=== PATIENT | female | born 1975 | race Two or more races ===

== ENCOUNTER 2022-07-29 13:49 | Emergency (ER) | payer OTHER, SELFPAY ==
--- NOTE | ~2022-07-29 | CT_ITS ---
EXAMINATION: CT brain wo con DATE: 07/29/2022 14:44 INDICATION: weakness of L arm? YOUNG . TECHNIQUE: Computed tomography (CT) of the head was performed without intravenous contrast. The mA wa s adjusted according to patient size. Iterative reconstruction technique was employed. The dose-lengt h product was 529.67 mGy-cm. COMPARISON: None FINDINGS: No acute intracranial hemorrhage or extra-axial fluid collection. No hydrocephalus, mass, or herniation. No acute ischemic infarct. Unremarkable dural venous sinus attenuation. No acute osseous abnormality. The aerated spaces are clear. IMPRESSION: No acute intracranial process. Reviewed, dictated and finalized at location K.
--- NOTE | ~2022-07-29 | CT_ITS ---
EXAMINATION: CT abdomen pelvis w con DATE: 07/29/2022 15:42 INDICATION: L flank/LLQ pain, nausea, diarrhea TECHNIQUE: Computed tomography (CT) of the abdomen and pelvis was performed with 100 mL Omnipaque-350 intravenous contrast. Automated exposure control and iterative reconstruction technique were employe d. The dose-length product was 763.27 mGy-cm. COMPARISON: None. FINDINGS: Lower thorax: Unremarkable Liver: Normal. Biliary/Gallbladder: Gallbladder is normal. No bile duct dilation. Pancreas: No mass or duct dilation. Spleen: Normal. Adrenals:No mass. Kidneys: No mass, stone, or hydronephrosis. GI tract: Mild distal esophageal and gastric wall edema. No small or large bowel dilation. Normal jen endix. Mesentery/Peritoneum: No ascites, mass, or free air. Retroperitoneum: No mass. Pelvis: Pelvic organs are within normal limits. Soft Tissues: Soft tissues and body wall unremarkable. Bones: No acute osseous finding. IMPRESSION: Mild esophagitis/gastritis. Otherwise no acute abdominopelvic process detected. Reviewed, dictated and finalized at location K.
[2022-07-29 13:53] VITALS: BP 149/90; PULSE 72; RESP 15; TEMP 36.3; O2SAT 100
--- NOTE | 2022-07-29 14:01 | ED.GENADULT ---
HPI - General Adult General Chief complaint: Unspecified Stated complaint: left arm numbness, nausea, weakness Time Seen by Provider: 07/29/22 14:01 Source: patient Mode of arrival: ambulatory Limitations: no limitations History of Present Illness HPI narrative: Patient is a 46 y/o female who presents to the ED with multiple complaints. Patient reports she has not felt well for the past 2 days. She complains of sore throat, congestion, runny nose, headache, left flank pain, diffuse abdominal pain, diarrhea, left elbow pain, tingling of left arm from left elbow down to fingers, generalized weakness, fatigue. Denies any fever, significant cough, vomiting, chest pain, shortness of breath. Denies recent sick contacts. Has been taking Ibuprofen and TUMs at home. Patient is vaccinated for COVID. Related Data Allergies Allergy/AdvReac Type Severity Reaction Status Date / Time No Known Allergies Allergy Verified 07/29/22 14:29 Review of Systems Review of Systems: CONSTITUTIONAL: Reports fatigue. Denies fever. ENT: Reports rhinorrhea, congestion, sore throat. CARDIOVASCULAR: Denies chest pain. RESPIRATORY: Denies cough or dyspnea. GASTROINTESTINAL: Reports abdominal pain, nausea, diarrhea. Denies vomiting. GENITOURINARY: Denies dysuria or hematuria. MUSCULOSKELETAL: Reports L elbow pain, L flank pain. NEUROLOGIC: Reports headache, tingling to LUE from L elbow down, generalized weakness. Denies numbness. All systems reviewed & are unremarkable except as noted in HPI and below PMFSH Past Medical History Medical History (Updated 07/29/22 @ 18:20 by Munira Esquivel PA-C) Anxiety Surgical History Surgical History (Updated 07/29/22 @ 14:53 by Munira Esquivel PA-C) History of hysterectomy Social History Social History (Updated 07/29/22 @ 14:53 by Munira Esquivel PA-C) Smoking status: Never smoker Exam Narrative: GENERAL: Well appearing, obese, non-toxic, in no acute distress. HEAD: Normocephalic, atraumatic. EYES: PERRL/EOMI, conjunctivae clear bilaterally. No nystagmus. THROAT: Pharynx clear, no exudate. No significant erythema. MMs moist. NECK: Supple. No adenopathy, no masses. RESPIRATORY: Airway patent, respirations nonlabored. Clear to auscultation bilaterally, no rales, rhonchi, wheezing. CARDIOVASCULAR: Regular rate and rhythm without murmurs, rubs, or gallops. Peripheral pulses 2+ and equal bilaterally. ABDOMINAL: Soft, mild tenderness in L sided ABD, worst in LLQ, nondistended, no hepatosplenomegaly. Normoactive BS. No CVA tenderness to percussion. MUSCULOSKELETAL: Moves all extremities. Strength/ROM intact without gross deformities. No midline spinal tenderness. No significant reproducible tenderness to palpation in left lower back. Mild tenderness over region of ulnar tunnel to medial L elbow, but unable to reproduce tingling/numbness sensation. Negative Tinels, phalens, carpal compression testing. SKIN: Warm, dry, normal color. No rashes. NEURO: A&O X3. Speech clear. Follows commands. CN II-XII intact. Sensation intact, no change in sharp sensation of LUE/L hand compared to right. Steady gait. No ataxic movements. Strength 5/5 in upper and lower extremities bilaterally, but minimal unequal spa manager/esthetician strength with mild weakness in L wrist/hand with making fist. [id number] and [id number] testing intact bilaterally. No pronator drift. PSYCHIATRIC: Anxious. Normal interaction. Course Consultations Consultation #1: Discussed case with Dr. Mratinez, Neurology, discussed that patient's symptoms/isolated hand weakness is unlikely to be stroke. No further recommendations at this time. Date: 07/29/22 Vital Signs Vital signs: Vital Signs Temperature 97.4 F L 07/29/22 13:53 Pulse Rate 72 07/29/22 13:53 Respiratory Rate 15 07/29/22 13:53 Blood Pressure 149/90 H 07/29/22 13:53 Pulse Oximetry 100 07/29/22 13:53 Oxygen Delivery Room Air 07/29/22 13:53 Temperature 97.4 F L 07/29/22 13:53
--- NOTE | 2022-07-29 14:11 | ECG_ITS ---
Measurements Intervals [place] Rate: 56 P: 20 TN: 158 QRS: 88 QRSD: 82 T: 23 QT: 397 QTc: 385 Interpretive Statements SINUS BRADYCARDIA BASELINE ARTIFACT- I, II, AVR BORDERLINE ECG Electronically Signed On 07-29-2022 18:44:24 CDT by Sekou Ortiz D.O.
[2022-07-29 14:25] LABS: Basophils Absolute Auto 0.1 K/mm3 (0.0-0.1); Basophils Percent Auto 0.6 % (0.2-1.2); Hematocrit 39.1 % (37.0-47.0); Hemoglobin 12.8 g/dL (12.0-15.0); Immature Granulocyte Absolute 0.09 K/mm3 (0.00-0.031); Immature Granulocyte Percent A 1.1 % (0-0.5); Lymphocytes Absolute Auto 2.71 K/mm3 (0.9-3.2); Lymphocytes Percent Auto 34.2 % (18.3-44.2); Mean Corpuscular HGB Conc 32.7 g/dl (32-36); Mean Corpuscular Hemoglobin 29.8 pg (26-34); Mean Corpuscular Volume 91.1 fl (80-100); Mean Platelet Volume 9.3 fl (7.4-10.4); Monocytes Absolute Auto 0.6 K/mm3 (0.1-0.6); Monocytes Percent Auto 7.3 % (2.6-8.5); Neutrophils Absolute Auto 4.5 K/mm3 (1.3-6.7); Neutrophils Percent Auto 56.8 % (45.5-73.1); Platelet Count Result 291 k/mm3 (150-375); Red Blood Count 4.29 M/mm3 (4.2-5.4); Red Cell Distribution Width 13.2 % (11.5-14.5); White Blood Count 7.9 K/mm3 (4.5-10.0)
[2022-07-29] MEDS: SODIUM CHLORIDE 0.9% IV 1,000 ML 999 ML IV CONT (14:28)
[2022-07-29 14:37] LABS: Alanine Aminotransferase 22 U/L (6-35); Albumin Level 3.9 g/dL (3.5-5.1); Alkaline Phosphatase 76 U/L (38-126); Anion Gap 8 mmol/L (8-16); Appearance Urine Clear (Clear); Aspartate Amino Transferase 26 U/L (14-36); Bilirubin Urine Negative (Negative); Bilirubin,Total 0.2 mg/dL (0.2-1.3); Blood Urea Nitrogen 14 mg/dL (7-17); Blood Urine Negative (Negative); Calcium 8.7 mg/dL (8.4-10.2); Carbon Dioxide 21 mmol/L (22-30); Chloride 106 mmol/L (98-107); Color Urine Yellow (Yellow); Estimated CRCL calculation 93 ml/min; Estimated Glomerular Filt Rate > 60; Glucose 95 mg/dL (65-110); Glucose Urine UA Negative (Negative); Ketones Urine Trace mg/dL (Negative); Leukocyte Esterase Ur Negative LEU/UL (Negative); Nitrate Urine Negative (Negative); Potassium 3.8 mmol/L (3.4-5.0); Protein Urine Negative (Negative); Sodium 135 mmol/L (137-145); Specific Grav Ur 1.025 (1.001-1.035); Urobilinogen Urine 0.2 mg/dL (<2.0)
[2022-07-29 15:03] LABS: Add Urine Microscopic? YES; RBC Urine None seen /hpf (0-2); SARS-CoV-2 RNA PCR Negative
[2022-07-29 15:04] LABS: Squamous Epithelial Cell Urine Few /hpf (Few); WBC Urine None seen /hpf
[2022-07-29 15:22] VITALS: BP 138/72; PULSE 76; RESP 18; O2SAT 99
[2022-07-29 15:52] LABS: Troponin I < 0.012 ng/mL (0.000-0.034)
[2022-07-29] MEDS: KETOROLAC 30 MG/ML VIAL (*BKC) IV PUSH (18:23)
[2022-07-29] MEDS: BELLADONNA ALK/PHENOB ELIX 10 ML, MAG HYDROX/ALUMINUM HYD/SIMETH 30 ML, LIDOCAINE HCL 2... PO (18:24)
[2022-07-29 18:33] VITALS: BP 132/68; PULSE 70; RESP 18; O2SAT 99
== END 2022-07-29 18:35 | disposition home or self-care (01) ==
PROVIDERS: Physician Assistant; Emergency Provider Emergency Medicine
DX: K52.9 Noninfective gastroenteritis and colitis, unspecified (principal); M62.81 Muscle weakness (generalized); Z20.822 Contact with and (suspected) exposure to COVID-19
CPT/HCPCS: 36415; 70450; 74177; 80053; 81001; 84484; 85025; 93005; 96361; 96365; 96375; 99284; A9270; C9803; J0131; J1885; J7030; Q9967; U0003; U0005

== ENCOUNTER 2023-12-27 15:35 | Emergency (ER) | payer OTHER, SELFPAY ==
--- NOTE | ~2023-12-27 | XR_ITS ---
EXAMINATION: XR chest 1V portable DATE: 12/27/2023 16:55 INDICATION: Chest tightness TECHNIQUE: AP view of the chest was obtained. COMPARISON: None FINDINGS: The lungs are clear with no focal airspace opacities, pulmonary edema, pleural effusion or pneumothor ax. The cardiomediastinal silhouette is normal. Visualized bones and soft tissues are unremarkable. IMPRESSION: 1. No acute cardiopulmonary disease. Reviewed, dictated and finalized at location A. EMAN
[2023-12-27 15:38] VITALS: BP 132/85; PULSE 95; RESP 16; TEMP 36.6; O2SAT 100
--- NOTE | 2023-12-27 16:41 | ECG_ITS ---
Measurements Intervals [place] Rate: 77 P: 43 IA: 158 QRS: 94 QRSD: 82 T: 15 QT: 350 QTc: 398 Interpretive Statements SINUS RHYTHM LOW QRS VOLTAGE BORDERLINE RIGHT AXIS DEVIATION [QRS AXIS > 90] PATTERN CONSISTENT WITH PULMONARY DISEASE ABNORMAL ECG COMPARED TO ECG 07/29/2022 15:05:06 NO DIFFERENCE Electronically Signed On 12-28-2023 7:08:25 SALES STRATEGY MANAGER by Navid Bell M.D.
[2023-12-27 17:20] LABS: Basophils Percent Auto 0.5 % (0.2-1.2); Hematocrit 43.8 % (37.0-47.0); Hemoglobin 14.1 g/dL (12.0-15.0); Immature Granulocyte Absolute 0.05 K/mm3 (0.00-0.031); Immature Granulocyte Percent A 0.6 % (0-0.5); Lymphocytes Absolute Auto 2.08 K/mm3 (0.9-3.2); Mean Corpuscular HGB Conc 32.2 g/dl (32-36); Mean Corpuscular Hemoglobin 29.1 pg (26-34); Mean Corpuscular Volume 90.5 fl (80-100); Mean Platelet Volume 9.4 fl (7.4-10.4); Monocytes Absolute Auto 0.4 K/mm3 (0.1-0.6); Monocytes Percent Auto 5.5 % (2.6-8.5); Neutrophils Absolute Auto 5.4 K/mm3 (1.3-6.7); Neutrophils Percent Auto 67.4 % (45.5-73.1); Platelet Count Result 279 k/mm3 (150-375); Red Blood Count 4.84 M/mm3 (4.2-5.4); Red Cell Distribution Width 12.8 % (11.5-14.5)
[2023-12-27 17:35] LABS: Anion Gap 8 mmol/L (8-16); Blood Urea Nitrogen 17 mg/dL (7-17); Calcium 9.6 mg/dL (8.4-10.2); Carbon Dioxide 29 mmol/L (22-30); Chloride 102 mmol/L (98-107); Estimated CRCL calculation 83 ml/min; Estimated Glomerular Filt Rate > 60; Glucose 103 mg/dL (65-110); Potassium 3.8 mmol/L (3.4-5.0); Sodium 139 mmol/L (137-145)
--- NOTE | 2023-12-27 18:07 | ED.GENADULT ---
HPI - General Adult General Chief complaint: Unspecified Stated complaint: not feeling right Time Seen by Provider: 12/27/23 16:32 History of Present Illness HPI narrative: patient with history of anxiety and panic attacks presenting here after an episode 2 days ago where she was in her studio and then felt chest tightness, felt like she couldn't breathe, and then felt like she was disconnected from herself. she both hands felt stiff and weak and she was barely able to speak, she finally took some propanolol for for anxiety, considered coming to the hospital, but felt slightly better so stayed home. Overall still feeling slightly tired so came in to the hospital. Related Data Allergies Allergy/AdvReac Type Severity Reaction Status Date / Time oxycodone AdvReac Itching Verified 12/27/23 17:41 Review of Systems Review of Systems: All systems reviewed & are unremarkable except as noted in HPI and below PMFSH Past Medical History Medical History (Updated 12/27/23 @ 17:53 by Lizzie Ruiz MD) Anxiety Surgical History Surgical History (Updated 07/29/22 @ 14:53 by Munira Esquivel PA-C) History of hysterectomy Social History Social History (Updated 07/29/22 @ 14:53 by Munira Esquivel PA-C) Smoking status: Never smoker Exam Narrative: EXAMINATION OF ORGAN SYSTEMS/BODY AREAS: Constitutional: Vital signs per nursing GENERAL:[No acute distress, non-toxic appearing.] HEAD: Normal with no signs of head trauma. EYES: EOMI, conjunctiva normal ENT: Hearing grossly intact LUNGS: Nonlabored breathing. HEART: [Regular rate and rhythm] ABD: [Soft], [nontender to palpation] EXT: Normal range of motion SKIN: [No rashes or lesions.] NEURO: [Alert and oriented x 3. No gross focal sensory or strength deficits.] PSYCH: Normal affect Course Vital Signs Vital signs: Vital Signs Temperature 98 F 12/27/23 15:38 Pulse Rate 95 12/27/23 15:38 Respiratory Rate 16 12/27/23 15:38 Blood Pressure 132/85 12/27/23 15:38 Pulse Oximetry 100 12/27/23 15:38 Oxygen Delivery Room Air 12/27/23 15:38 Temperature 98 F 12/27/23 15:38 Pulse Rate 95 12/27/23 15:38 Respiratory Rate 16 12/27/23 15:38 Blood Pressure 132/85 12/27/23 15:38 Pulse Oximetry 100 12/27/23 15:38 Oxygen Delivery Room Air 12/27/23 15:38 Medical Decision Making MDM Narrative Medical decision making narrative: Patient with history of anxiety/panic attacks presenting here with an episode that sounds to me consistent with panic attacks that has since resolved. On exam patient is well-appearing in no distress, with normal vital signs. I will obtain EKG and chest xray to rule out arrhythmia/ischemia, pneumothorax, or other cause of chest discomfort/shortness of breath. I will also obtain basic labs to an ensure no anemia. She is PERC neg. Chest x-ray on my independent interpretation does not show any acute abnormality, no pneumothorax or consolidation. EKG - 12-Lead: Interpreted by me. [Sinus rhythm]. Rate [77]. [Normal] axis. IA-interval [normal]. QRS duration [normal]. QTc [normal]. [No ST segment elevation or depression]. [T-wave normal]. Impression: No EKG evidence of acute ischemia or dysrhythmia. On reevaluation patient is not feeling worse she is resting comfortably, normal vitals; she does have migraines and would like some medicine for that right now so I will give toradol. I do feel patient is stable for discharge home at this time with followup to their doctor, and return here if symptoms return or worsen. Agreeable to outpatient management. Vital Signs Vital Signs: Vital Signs Temperature 98 F 12/27/23 15:38 Pulse Rate 95 12/27/23 15:38 Respiratory Rate 16 12/27/23 15:38 Blood Pressure 132/85 12/27/23 15:38 Pulse Oximetry 100 12/27/23 15:38 Oxygen Delivery Room Air 12/27/23 15:38 Temperature 98 F 12/27/23 15:38 Pulse Rate 95 12/27/23 15:38 Respirato
[2023-12-27 18:13] VITALS: BP 134/86; PULSE 78; RESP 16; O2SAT 98
[2023-12-27] MEDS: KETOROLAC 30 MG/ML VIAL (*BKC) IM (18:13)
== END 2023-12-27 18:14 | disposition home or self-care (01) ==
PROVIDERS: Emergency Provider Emergency Medicine; PCP Family Medicine
DX: F41.9 Anxiety disorder, unspecified (principal); R53.83 Other fatigue; R07.89 Other chest pain; Z90.710 Acquired absence of both cervix and uterus; R94.31 Abnormal electrocardiogram [ECG] [EKG]
CPT/HCPCS: 36415; 71045; 80048; 85025; 93005; 96372; 99283; J1885

== ENCOUNTER 2023-12-29 16:09 | Emergency (ER) | payer OTHER, SELFPAY ==
--- NOTE | 2023-12-29 16:19 | ED.GENADULT ---
HPI - General Adult General Chief complaint: Headache Stated complaint: Headache Time Seen by Provider: 12/29/23 16:20 Source: patient Mode of arrival: ambulatory Limitations: no limitations History of Present Illness HPI narrative: 28-year-old female patient presents to the [facility] with complaints of migraine. Patient states she was seen in the ER about 2 days ago for an anxiety attack. Patient states that she had developed a migraine after her anxiety attack and was given Toradol in the ER. Patient states she has been taking her propanolol for her migraines and anxiety as well as been taking ibuprofen for the headaches but states they have not been resolving. Patient describes symptoms as sensitivity to light, headache to the left side of the face, rates headache pain 8/10 with nausea. Denies vomiting or diarrhea. Denies any fevers, body aches or chills. Denies numbness or tingling no one-sided body of the other. The patient states she has never been diagnosed or treated for hypertension. Related Data Home Medications Medication Instructions Recorded Confirmed albuterol sulfate 90 mcg/actuation 2 puff inhalation DIRECTED 12/29/23 12/29/23 aerosol inhaler alprazolam 2 mg tablet 2 mg PO DIRECTED 12/29/23 12/29/23 mometasone 50 mcg/actuation nasal 1 spray intranasal DIRECTED 12/29/23 12/29/23 spray propranolol 20 mg tablet 20 mg PO DIRECTED 12/29/23 12/29/23 Allergies Allergy/AdvReac Type Severity Reaction Status Date / Time oxycodone AdvReac Itching Verified 12/29/23 16:13 Review of Systems Review of Systems: CONSTITUTIONAL: Denies fever, chills, or sweats. EYES: Denies visual changes, redness, or discharge. ENT: Denies rhinorrhea, congestion, sore throat, or otalgia. CARDIOVASCULAR: Denies chest pain, palpitations, or edema. RESPIRATORY: Denies cough or dyspnea. GASTROINTESTINAL: Denies abdominal pain, nausea, vomiting, or diarrhea. GENITOURINARY: Denies dysuria or hematuria. SKIN: Denies rash or itching. MUSCULOSKELETAL: Denies back pain, joint pain, or myalgia. NEUROLOGIC: positive headache,denies numbness, or weakness. PSYCHIATRIC: Denies anxiety or depression. [facility] Past Medical History Medical History (Updated 02/03/24 @ 16:59 by MENA Olson) Anxiety Migraine Surgical History Surgical History History of hysterectomy Social History Social History Smoking status: Never smoker Comments At the time of my signature I agree with nursing past medical history, surgical, social, and family history. There is no relevant family history pertinent to the presenting complaint. Exam Narrative: GENERAL: Well-appearing, well-nourished, and in no acute distress. HEAD: Normocephalic, atraumatic. EYES: PERRLA and EOMI. ENT: Nares clear, no rhinorrhea or epistaxis. Mucous membranes moist. NECK: Supple. No lymphadenopathy CHEST: Clear to auscultation. No respiratory distress. HEART: Regular rate and rhythm. No murmur heard. Normal peripheral pulses. ABDOMEN: Soft, nontender, nondistended, normal active bowel sounds. EXTREMITIES: Normal range of motion. No edema. SKIN: Warm, dry, no rash. NEURO: Alert and oriented x4, GCS 15. Cranial nerves II through XII grossly intact. No focal neurological deficits. Normal muscle strength and tone. Normal deep tendon reflexes. Negative Babinski, normal finger to nose coordination he had normal heel to tinoco glide. Speech is clear. Normal gait. Negative Romberg and no pronator drift Course Course Level of Care: Express Care Visit Vital Signs Vital signs: Vital Signs Temperature 36.6 C 12/29/23 16:25 Pulse Rate 71 12/29/23 16:25 Respiratory Rate 16 12/29/23 16:25 Blood Pressure 155/105 H 12/29/23 16:25 Pulse Oximetry 100 12/29/23 16:25 Oxygen Delivery Room Air 12/29/23 16:25 Temperature 36.6 C 0
[2023-12-29 16:25] VITALS: BP 155/105; PULSE 71; RESP 16; TEMP 36.6; O2SAT 100
--- NOTE | 2023-12-29 16:43 | ECG_ITS ---
Measurements Intervals [place] Rate: 65 P: 38 RI: 161 QRS: 90 QRSD: 82 T: 30 QT: 387 QTc: 404 Interpretive Statements SINUS RHYTHM COMPARED TO ECG 12/27/2023 17:36:20 NO SIGNIFICANT CHANGES Electronically Signed On 12-30-2023 11:34:22 NITROGLYCERIN SEPARATOR OPERATOR by Sunny Barnes M.D.
== END 2023-12-29 17:00 | disposition home or self-care (01) ==
PROVIDERS: Emergency Provider Nurse Practitioner Family; PCP Family Medicine
DX: G43.809 Other migraine, not intractable, without status migrainosus (principal); I10 Essential (primary) hypertension; F41.9 Anxiety disorder, unspecified
CPT/HCPCS: 93005; 99213; G0463

== ENCOUNTER 2023-12-30 13:05 | Emergency (ER) | payer OTHER, SELFPAY ==
--- NOTE | ~2023-12-30 | CT_ITS ---
EXAMINATION: CT brain wo con DATE: 12/30/2023 16:26 INDICATION: migraine YOUNG . TECHNIQUE: Computed tomography (CT) of the head was performed without intravenous contrast. The mA wa s adjusted according to patient size. Iterative reconstruction technique was employed. The dose-lengt h product was 529.67 mGy-cm. COMPARISON: None. FINDINGS: No acute intracranial hemorrhage or extra-axial fluid collection. No hydrocephalus, mass, or herniation. No acute ischemic infarct. Unremarkable dural venous sinus attenuation. No acute osseous abnormality. The aerated spaces are clear. IMPRESSION: No acute intracranial process. Reviewed, dictated and finalized at location K. GER HELPDESK
[2023-12-30 13:19] VITALS: BP 145/100; PULSE 100; RESP 20; TEMP 36.4; O2SAT 99
--- NOTE | 2023-12-30 13:33 | ED.HA ---
HPI - Headache General Chief Complaint: Headache Stated Complaint: headache Time Seen by Provider: 12/30/23 13:33 Source: patient Mode of arrival: ambulatory Limitations: no limitations History of Present Illness HPI Narrative: Trang is a 48-year-old female patient presenting to the ER today with complaints of headache and high blood pressure that has been ongoing since Sunday. She reports she was seen in the ER for a panic attack on Sunday and had slight headache at that time. Was given Toradol for pain and that helped alleviate the headache somewhat but did not fully take the headache away. States she does have a history of migraine headaches in the past. Was told to take Excedrin migraine, Benadryl, and and her Xanax. She is reporting associated photosensitivity and nausea. Denies any vomiting. Rates her pain currently an 8/10 and is throbbing on the left side of her head Related Data Home Medications Medication Instructions Recorded Confirmed albuterol sulfate 90 mcg/actuation 2 puff inhalation DIRECTED 12/29/23 12/29/23 aerosol inhaler alprazolam 2 mg tablet 2 mg PO DIRECTED 12/29/23 12/29/23 mometasone 50 mcg/actuation nasal 1 spray intranasal DIRECTED 12/29/23 12/29/23 spray propranolol 20 mg tablet 20 mg PO DIRECTED 12/29/23 12/29/23 Allergies Allergy/AdvReac Type Severity Reaction Status Date / Time oxycodone AdvReac Itching Verified 12/30/23 13:05 Review of Systems Review of Systems: Pertinent positives per HPI. Patient denies any fever, chills, rash, visual changes, dizziness, cough, runny nose, sore throat, shortness of breath, chest pain, palpitations, nausea, vomiting, diarrhea, constipation, abdominal pain, or any urinary issues. [facility] Past Medical History Medical History (Updated 12/30/23 @ 14:29 by Santiago Álvarez APRN) Anxiety Migraine Surgical History Surgical History History of hysterectomy Social History Social History Smoking status: Never smoker Comments At the time of my signature, I reviewed and agree with the nursing past medical, surgical, social, and family history. There is no relevant family history pertinent to the patient complaint. Exam Narrative: General: Well-developed, well nourished, in no apparent distress Head: Normocephalic, atraumatic Eyes: Pupils equally round and reactive to light bilaterally, EOM intact, sclera and conjunctive clear, no discharge, lids normal Ears: TMs intact and clear, ear canals clear, no drainage, grossly hearing normal. Nose: Nares patent, no discharge, no inflammation, no sinus tenderness. Mouth: Oropharynx without lesions or masses, good dentition, MMM. Tongue midline, even rise and fall of uvula Neck: Supple, trachea midline, no enlargement of anterior or posterior cervical nodes, no thyroid masses or goiter palpable. Cardio: Regular rate and rhythm, s1 and s2 normal, no murmur appreciated. Resp: Clear to auscultation bilaterally anteriorly and posteriorly, no rhonchi, rales, wheezing or rubs Musculoskeletal: No deformity, non-tender to palpation, grossly normal range of motion, muscle strength strong and equal, peripheral pulse strong, no edema, no cyanosis, normal gait and station Neuro: Alert and oriented x4 with normal speech, no focal deficits, cranial nerves I through XII intact, muscle strength 5 out of 5, sensation intact bilaterally, negative Romberg test Course Course Emergency Course: Portions of this record may have been created with voice recognition software. Vital Signs Vital signs: Vital Signs Temperature 36.4 C 12/30/23 13:19 Pulse Rate 100 12/30/23 13:19 Respiratory Rate 20 12/30/23 13:19 Blood Pressure 145/100 H 12/30/23 13:19 Pulse Oximetry 99 12/30/23 13:19 Oxygen Delivery Room Air 12/30/23 13:19 Temperature 36.4 C
[2023-12-30] MEDS: LORazepam INJ (*CRX) 2 MG/ML VIAL 0.5 MG IV PUSH (14:47)
[2023-12-30] MEDS: ONDANSETRON INJ 4 MG/2 ML VIAL IV PUSH (14:47)
[2023-12-30] MEDS: SODIUM CHLORIDE 0.9% IV 1,000 ML 999 ML IV CONT (14:47)
[2023-12-30] MEDS: KETOROLAC 30 MG/ML VIAL (*BKC) IV PUSH (16:45)
[2023-12-30 16:46] VITALS: BP 130/85; PULSE 84; RESP 18
[2023-12-30 17:36] VITALS: BP 158/86; PULSE 86; RESP 16; O2SAT 98
== END 2023-12-30 17:38 | disposition home or self-care (01) ==
PROVIDERS: Emergency Provider Nurse Practitioner Family; PCP Family Medicine
DX: R03.0 Elevated blood-pressure reading, without diagnosis of hypertension (principal); G43.909 Migraine, unspecified, not intractable, without status migrainosus; F41.9 Anxiety disorder, unspecified; Z79.899 Other long term (current) drug therapy
CPT/HCPCS: 70450; 96361; 96374; 96375; 99284; J1885; J2060; J2405; J7030

== ENCOUNTER 2024-01-09 16:58 | Emergency (ER) | payer OTHER, SELFPAY ==
--- NOTE | ~2024-01-09 | XR_ITS ---
EXAMINATION: XR knee LT min 4V DATE: 01/09/2024 17:53 INDICATION: Diffuse left knee pain post fall TECHNIQUE: Anteroposterior, 2 oblique and crosstable lateral views of the left knee were obtained COMPARISON: None. FINDINGS: Patella tiffany. Alignment is otherwise normal. No fracture. Joint spaces appear normal on nonweightbea ring imaging. No joint effusion/layering lipohemarthrosis. Mild prepatellar subcutaneous edema. IMPRESSION: 1. No left knee joint effusion or acute osseous abnormality. Reviewed, dictated and finalized at location A. STANT PROFESSOR OF THEATER
--- NOTE | ~2024-01-09 | XR_ITS ---
EXAMINATION:XR cervical spine 4-5V DATE: 01/09/2024 17:53 INDICATION: Posterior neck pain post fall TECHNIQUE: AP, lateral, lateral swimmers and odontoid views of the cervical spine are provided. COMPARISON: None FINDINGS: There is reversal of the normal cervical lordosis. Odontoid is intact. Normal atlantoaxial interval. Vertebral body heights are normal. Moderate disc height loss at C5-C6 and C6-C7 with moderate to sev ere associated bilateral uncovertebral osteoarthritis. There is mild disc height loss with mild uncov ertebral osteoarthritis at C2-C3 and C4-C5. There is mild to moderate cervical facet osteoarthritis. Prevertebral soft tissues are normal. Visualized upper lungs are clear. IMPRESSION: 1. Moderate cervical spondylosis. Reviewed, dictated and finalized at location A. EL SETTER
--- NOTE | ~2024-01-09 | XR_ITS ---
EXAMINATION: XR ankle LT min 3V DATE: 01/09/2024 17:53 INDICATION: Diffuse left ankle pain post fall TECHNIQUE: Anteroposterior, oblique, mortise, and lateral views of the left ankle were obtained. COMPARISON: None. FINDINGS: There is an oblique fracture through the distal fibula with a fracture plane exiting medially at the level of the tibiotalar joint. There is minimal displacement. No other fracture identified. Specifi earnest the medial and posterior malleoli as well as the talar dome are intact. Ankle mortise remains congruent. Soft tissue swelling overlying the lateral malleolus. No ankle joint effusion. IMPRESSION: 1. Minimally displaced oblique fracture of the distal left fibula consistent with a Rosa type B inju ry pattern. IMPRESSION: 1. Reviewed, dictated and finalized at location A. OLOGICAL ILLUSTRATOR IMPRESSION: 1. Minimally displaced oblique fracture of the distal left fibula consistent wi th a Rosa type B injury pattern. IMPRESSION: 1.
[2024-01-09 17:14] VITALS: BP 124/73; PULSE 97; RESP 16; TEMP 36.8; O2SAT 99
--- NOTE | 2024-01-09 17:16 | ED.FALL ---
HPI - Fall General Chief Complaint: Extremity Injury, Lower Stated Complaint: left ankle,knee pain. back of head pain,body hurts Time Seen by Provider: 01/09/24 17:16 Source: patient Mode of arrival: wheelchair Limitations: no limitations History of Present Illness HPI Narrative: 48 yo F presents with pain to L ankle, L knee and neck. Pt states she was walking her dog and another dog came outside. Her dog tried to dyana it and pulled on leash. Pt states her L ankle twisted and she fell off curb of sidewalk and into street. Fell down onto L knee and then rolled. Denies hitting head and states her neighbor saw whole thing and told her she didn't hit head. Denies LOC. Someone driving past got out of their car and helped her get up. pt's significant other drove her to express care. All systems reviewed and negative except as noted above. Related Data Home Medications Medication Instructions Recorded Confirmed albuterol sulfate 90 mcg/actuation 2 puff inhalation DIRECTED 12/29/23 01/09/24 aerosol inhaler alprazolam 2 mg tablet 2 mg PO DIRECTED 12/29/23 01/09/24 mometasone 50 mcg/actuation nasal 1 spray intranasal DIRECTED 12/29/23 01/09/24 spray topiramate 25 mg tablet 25 mg PO DAILY 01/09/24 01/09/24 Allergies Allergy/AdvReac Type Severity Reaction Status Date / Time oxycodone AdvReac Itching Verified 01/09/24 17:12 Review of Systems Review of Systems: CONSTITUTIONAL: Denies fever, chills, or sweats. EYES: Denies visual changes, redness, or discharge. ENT: Denies rhinorrhea, congestion, sore throat, or otalgia. CARDIOVASCULAR: Denies chest pain, palpitations, or edema. RESPIRATORY: Denies cough or dyspnea. GASTROINTESTINAL: Denies abdominal pain, nausea, vomiting, or diarrhea. GENITOURINARY: Denies dysuria or hematuria. SKIN: Denies rash or itching. MUSCULOSKELETAL: Denies back pain . Reports pain to neck, left knee and left ankle. NEUROLOGIC: Denies headache, numbness, or weakness. PSYCHIATRIC: Denies anxiety or depression. All other systems reviewed are negative, except as documented in HPI. [facility] Past Medical History Medical History (Updated 01/09/24 @ 18:45 by Patricia Young NP) Anxiety Migraine Surgical History Surgical History History of hysterectomy Social History Social History Smoking status: Never smoker Comments At time of signature, agree with nursing past medical, surgical, social and family history. There is no relevant family history pertinent to the presenting complaint. Exam Narrative: GENERAL: This is a well-nourished, well-developed patient, in no apparent distress. HEAD: normocephalic, atraumatic. EYES: PERRL. Sclera clear/white. Vision is grossly intact. EARS: External ears normal NOSE: External nose normal NECK: Neck supple, without lymphadenopathy, masses or thyromegaly. Tenderness to C5, C6. No deformity. Neck range of motion normal. CARDIOVASCULAR: Regular rate and rhythm without murmurs, gallops, or rubs. RESPIRATORY: Clear to auscultation. Breath sounds equal bilaterally. No wheezes, rales, or rhonchi. SKIN: warm, Dry, intact with no suspicious lesions or rash, good texture and turgor. NEURO: awake, alert, and oriented to person, place and time. There were no obvious focal neurologic abnormalities. EXTREMITIES: abrasion to Anterior aspect left knee with mild swelling. tenderness on palpation to left patella. Tenderness to left lateral ankle with swelling. Decreased range of motion due to pain. Course Course Level of Care: Express Care Visit Vital Signs Vital signs: Vital Signs Temperature 36.8 C 01/09/24 17:14 Pulse Rate 97 01/09/24 17:14 Respiratory Rate 16 01/09/24 17:14 Blood Pressure 124/73 01/09/24 17:14 Pulse Oximetry 99 01/09/24 17:14 Oxygen Delivery Room Air 01/09/24 17:14 T
[2024-01-09 17:26] VITALS: BP 124/73; PULSE 97; RESP 16; TEMP 36.8; O2SAT 99
== END 2024-01-09 19:20 | disposition home or self-care (01) ==
PROVIDERS: Emergency Provider Nurse Practitioner Family; PCP Family Medicine
DX: S82.832A Other fracture of upper and lower end of left fibula, initial encounter for closed fracture (principal); W10.1XXA Fall (on)(from) sidewalk curb, initial encounter; Y93.K1 Activity, walking an animal; S80.212A Abrasion, left knee, initial encounter; M25.462 Effusion, left knee; S16.1XXA Strain of muscle, fascia and tendon at neck level, initial encounter; F41.9 Anxiety disorder, unspecified
CPT/HCPCS: 29515; 72050; 73564; 73610; 99214; G0463

== ENCOUNTER 2024-06-03 11:00 | Outpatient (RCR) | payer OTHER, SELFPAY ==
--- NOTE | 2024-03-13 12:01 | OPREHPOC ---
Outpatient Therapy Plan of Care This is a Multidisciplinary Plan of Care that may contain components documented by all disciplines (PT, OT, and ST.) PT Problem 1 PT Problem #1 Knowledge Deficit PT Goal 1 Goal [place] with HEP Target Visit 4 PT Problem 2 PT Problem #2 Edema PT Goal 1 Goal Demonstrate 2 cm+ reduction in ankle joint line edema indicating soft tissue healing Target Visit 10 PT Problem 3 PT Problem #3 Impaired Gait PT Goal 1 Goal Ambulate independent of CAM boot for 100' without use of AD Target Visit 10 PT Goal 2 Goal Ambulate with even stride length bilaterally independent of AD Target Visit 10 PT Problem 4 PT Problem #4 Impaired Range of Motion PT Goal 1 Goal Improve L ankle Dorsiflexion ROM to 15+ degrees to even stride length blaterallty PT Goal 2 Goal Demonstrate 45 degrees of left ankle plantar flexion to allow for proper push off with gait pattern Target Visit 10 PT Problem 5 PT Problem #5 Impaired Strength PT Goal 1 Goal Improve gross left ankle strength to 4+/5 to improve stabilization and gait on even and uneven surfaces Target Visit 10
--- NOTE | 2024-03-13 12:01 | PTOPEVAL1 ---
Assessment and note entered by Edwin Mariscal, PT Evaluation Information Assessment Status Evaluation Diagnosis Left Fibula fracture, Left foot pain Onset 01/09/24 Subjective Information Reports that she fell while walking dog. Fell on her back and twisted ankle. MD follow up to allow her weight bear as tolerated at this time. She has really been struggling with ambulation in boot and going up and down stairs. Has a lot of back pain. She has been chronically swollen at this point and feels swelling has really limited her. She is getting some shooting pain and twitching in her foot at night. Having trouble wiggling her toes. Reports that she had to sleep with her boot on at night because it hurt to twist it at night. Reported Pain Level Pain Score 0: Self Report Assessment PT Clinical Summary Patient presents with significant ankle swelling as measured. Significant loss in ankle ROM with dependence on CAM boot at this time. Pain is a a major limiting factor to both palpation and mobilization. We will emphasize edema reduction with motion with eventual progress to ankle mobility and gait training as tolerated. Plan of Care Interventions Aquatic Therapy,Electrical Stimulation,Hot Pack/ Cold Pack,Manual Therapy,Neuro Re-education, Therapeutic Activities,Therapeutic Exercise PT Services Indicated Yes Treatment Frequency and 2x/week for 10 visits Duration These treatments will address the objective and functional deficits as defined above. The patient will be advanced safely and appropriately in order for the patient to progress towards his/her prior level of function. Additional exercises will be introduced and as well as a comprehensive home exercise program upon discharge, if needed, ?to ensure carryover of functional gains achieved in the clinic. This treatment plan has been reviewed and agreement upon by the patient.
--- NOTE | 2024-04-17 11:30 | OPREHPOC ---
Outpatient Therapy Plan of Care This is a Multidisciplinary Plan of Care that may contain components documented by all disciplines (PT, OT, and ST.) PT Problem 1 PT Problem #1 Knowledge Deficit PT Goal 1 Goal [place] with HEP Target Visit 4 PT Problem 2 PT Problem #2 Edema PT Goal 1 Goal Demonstrate 2 cm+ reduction in ankle joint line edema indicating soft tissue healing Target Visit 20 Progress Partially Met Comment Improved, but still significant edema noted PT Problem 3 PT Problem #3 Impaired Gait PT Goal 1 Goal Ambulate independent of CAM boot for 100' without use of AD Target Visit 10 Progress Met PT Goal 2 Goal Ambulate with even stride length bilaterally independent of AD Target Visit 20 Progress Partially Met PT Problem 4 PT Problem #4 Impaired Range of Motion PT Goal 1 Goal Improve L ankle Dorsiflexion ROM to 15+ degrees to even stride length blaterallty Target Visit 20 PT Goal 2 Goal Demonstrate 45 degrees of left ankle plantar flexion to allow for proper push off with gait pattern Target Visit 20 Progress Partially Met PT Problem 5 PT Problem #5 Impaired Strength PT Goal 1 Goal Improve gross left ankle strength to 4+/5 to improve stabilization and gait on even and uneven surfaces Target Visit 20 Progress Partially Met
--- NOTE | 2024-04-17 11:30 | PTOPPROG ---
Assessment and note entered by Edwin Mariscal, PT Evaluation Information Assessment Status Progress Diagnosis Left Fibula fracture, Left foot pain Onset 01/09/24 Subjective Information Patient reports that she still feel she is battling swelling which is affecting her gait and mobility. Overall she is slowly progressing but still concerned with her timeline. Feels that tightness and swelling are still a primary issue causing her pain especially at night when she has been active. Still having a lot of trouble squatting and going down stairs. Assessment PT Clinical Summary Patient has seen improvement in ankle edema and ROM but these continue to be somewhat of a hindrance on gait and mobility. She continues to demonstrate significant edema especially in later appointments and by end of day. Will continue to benefit form skilled therapy to continue to work through objective and functional deficits for log term improvement. Plan of Care Interventions Aquatic Therapy,Electrical Stimulation,Hot Pack/ Cold Pack,Manual Therapy,Neuro Re-education, Therapeutic Activities,Therapeutic Exercise PT Services Indicated Yes Treatment Frequency and 2x/week for 10 visits Duration These treatments will address the objective and functional deficits as defined above. The patient will be advanced safely and appropriately in order for the patient to progress towards his/her prior level of function. Additional exercises will be introduced and as well as a comprehensive home exercise program upon discharge, if needed, ?to ensure carryover of functional gains achieved in the clinic. This treatment plan has been reviewed and agreement upon by the patient.
--- NOTE | 2024-05-20 11:19 | PCPTNOTE ---
Pt NS appointment today, pt stated she had wrong day down. She was reminded of her her next 2 visits.
--- NOTE | 2024-06-03 12:14 | OPREHPOC ---
Outpatient Therapy Plan of Care This is a Multidisciplinary Plan of Care that may contain components documented by all disciplines (PT, OT, and ST.) PT Problem 1 PT Problem #1 Knowledge Deficit PT Goal 1 Goal [place] with HEP Target Visit 4 Progress Met Comment 06-03-24 progress goal met continue towards goal PT Goal 2 Target Visit 25 PT Problem 2 PT Problem #2 Edema PT Goal 1 Goal Demonstrate 2 cm+ reduction in ankle joint line edema indicating soft tissue healing Target Visit 20 Progress Partially Met Comment Improved, but still significant edema noted PT Goal 2 Goal 06-03-24 progress goal met NEW goals: 1* figure 8 measurement: 53 cm 2* around malleoli 27 cm Target Visit 25 PT Problem 3 PT Problem #3 Impaired Gait PT Goal 1 Goal Ambulate independent of CAM boot for 100' without use of AD Target Visit 10 Progress Met PT Goal 2 Goal Ambulate with even stride length bilaterally independent of AD Target Visit 20 Progress Partially Met Comment 06-03-24 progress goal not met; NEW GOALS: 1* 2 minute walking test distance of 450' 2* ambulate with push off on L PT Problem 4 PT Problem #4 Impaired Range of Motion PT Goal 1 Goal Improve L ankle Dorsiflexion ROM to 15+ degrees to even stride length blaterallty Target Visit 20 PT Goal 2 Goal Demonstrate 45 degrees of left ankle plantar flexion to allow for proper push off with gait pattern Target Visit 20 Progress Partially Met
--- NOTE | 2024-06-03 12:14 | PTOPPROG ---
Assessment and note entered by Belgica Morales, PT Evaluation Information Assessment Status Progress Diagnosis Left Fibula fracture, Left foot pain Onset 01/09/24 Subjective Information have not gotten anything out of the regular therapy, but aquatic has helped--able to do more things; can move toes more; cannot wear a shoe- foot too big and they do not fit; have one pair of shoes, can wear about 1 hour, then have to take it off due to foot swollen; wear flip flops all the time pain range 0-5/10; primary dr ordered an xray of R knee due to it hurting when going down the stairs--it showed effusion; have been doing some gardening and light yard work --can do about 2 hours then have to stop due to more pain and swelling in L ankle/foot; is not 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 Compared to the last progress report: pain from 6 to 5/10 at worst; continues to report swelling, tightness over ankle and foot; now also reports R knee pain and L 2-3-4 toe pain/ Metatarsal pain; reports she can be up on her feet for 4 hours, then have to sit down and rest; Ankle AROM in long sitting: DF 0', PF 50', inversion 35', eversion 10'; single leg standing 14 seconds and bilateral ankle PF in standing x 15 reps; 2 minute walking test distance of 360' with flip flop sandals on--her shoes are too tight on L. With walking, she has flat foot pattern and decreased weight shift to L LE. On stairs, she can go up with alternating pattern, but down with single step pattern, due to R knee pain. The goals were partially achieved. Continue PT treatment. Plan of Care Interventions Electrical Stimulation,Gait Training,Hot Pack/Cold Pack,Manual Therapy,Neuro Re-education,Patient/ Caregiver Education,Therapeutic Activities, Therapeutic Exercise,Ultrasound,Other Other Interventions taping PT Services Indicated Yes Treatment Frequency and 2x/ wk for 8 visits Duration These
--- NOTE | 2024-06-09 11:57 | PCPTNOTE ---
This treatment is being continued on visit number [id number]. Please see documentation on both accounts to view progress. Completed interventions, outcomes, and problems have been marked as Inactive to facilitate the copying of the Care plan routine for recurring accounts.
== END 2024-06-09 11:12 | disposition home or self-care (01) ==
LOC: ANHPT 11:00
PROVIDERS: PCP Family Medicine; Visit Provider Orthopaedic Surgery
DX: M79.672 Pain in left foot (principal); S82.832D Other fracture of upper and lower end of left fibula, subsequent encounter for closed fracture with routine healing
CPT/HCPCS: 97014; 97016; 97022; 97110; 97113; 97116; 97140; 97161; 97530; G0283

== ENCOUNTER 2024-09-17 14:54 | Outpatient (CLI) | payer OTHER, SELFPAY ==
--- NOTE | ~2024-09-17 | CT_ITS ---
EXAMINATION: CT ankle LT wo con DATE: 09/17/2024 15:35 INDICATION: Distal left fibula fracture. TECHNIQUE: Computed tomography (CT) of the left ankle was performed without intravenous contrast. Aut omated exposure control and iterative reconstruction technique were employed. The dose-length product was 213.81 mGy-cm. COMPARISON: Left ankle radiographs 09/05/2024, 09/09/2024, 01/09/24 FINDINGS: Bone alignment is normal. There is an oblique fracture of distal fibula with medial aspect of the fracture line at the level of the tibial plafond. The distal fracture fragment demonstrates ne ar-anatomic alignment. There is some bridging bone at the fracture line. There is mild osteoarthritis of the ankle joint and some of the interphalangeal joints and midfoot joints. IMPRESSION: 1. Healed oblique fracture of distal fibula. 2. Mild polyarticular osteoarthritis. Reviewed, dictated and finalized at location A.
== END 2024-09-17 14:55 | disposition home or self-care (01) ==
PROVIDERS: PCP Orthopaedic Surgery; Visit Provider Orthopaedic Surgery
DX: S82.432A Displaced oblique fracture of shaft of left fibula, initial encounter for closed fracture (principal); X58.XXXA Exposure to other specified factors, initial encounter
CPT/HCPCS: 73700

== ENCOUNTER 2024-10-10 07:08 | Outpatient (CLI) | payer OTHER, SELFPAY ==
--- NOTE | ~2024-10-10 | MR_ITS ---
MRI of the left ankle Clinical history: Pain Technique: Coronal proton-density and proton-density fat-sat images, axial proton-density and proton- density fat-sat images, and sagittal proton-density and proton-density fat-sat images were acquired. COMPARISON: CT of the ankle dated 09/17/2024 Findings: Syndesmotic ligaments are intact. Anterior and posterior talofibular ligaments, and calcane ofibular ligament are intact. Deltoid ligament is intact. Medial flexor tendons, peroneal tendons, anterior extensor tendons, and Achilles tendon are intact. There is no osteochondral lesion of the talar dome. There is oblique, essentially nondepressed fractu re the distal fibula, at and just proximal to the level ankle mortise. Osseous alignment remains esse ntially anatomic. There is minimal tibiotalar joint effusion. No other bone marrow signal abnormality seen. Plantar fascia intact. No soft tissue mass or fluid collection seen. Impression: Stable oblique fracture distal fibula with medial bony bridging. 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 No other significant findings. No acute abnormality. Reviewed, dictated and finalized at location . ER CONTROL TECHNICIAN Impression: Stable oblique fracture distal fibula with medial bony bridging. 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 No other significant findings. No acute abnormality.
== END 2024-10-10 07:09 | disposition home or self-care (01) ==
PROVIDERS: PCP Orthopaedic Surgery; Visit Provider Orthopaedic Surgery
DX: S82.892D Other fracture of left lower leg, subsequent encounter for closed fracture with routine healing (principal); X58.XXXD Exposure to other specified factors, subsequent encounter; M25.472 Effusion, left ankle
CPT/HCPCS: 73721

== ENCOUNTER 2024-11-20 08:11 | Emergency (ER) | payer OTHER, SELFPAY ==
--- NOTE | 2024-11-20 08:14 | ED_ITS ---
HPI - Back Pain/Injury General Chief Complaint: Back Pain/Injury Stated Complaint: lower back pain Time Seen by Provider: 11/20/24 08:21 Source: patient, RN notes reviewed and old records reviewed Mode of arrival: ambulatory Limitations: no limitations History of Present Illness HPI Narrative: 49-year-old female presents to the [facility] with complaints of low pain for couple weeks patient reports that she broke December 2023 not been walking right since tramadol, Lidoderm patch and ibuprofen. Pain got worse today. Denies any urinary symptoms. No loss retention of bowel or bladder. Denies any injury. Denies any numbness or tingling in extremities Pain is worse with movement, changing of positions from sitting to standing and twisting. Patient reports symptoms for a couple of weeks Related Data Home Medications ?Medication ?Instructions ?Recorded ?Confirmed ?Last Taken ?Type albuterol sulfate 90 mcg/actuation 2 puff inhalation DIRECTED 12/29/23 11/20/24 Unknown History aerosol inhaler alprazolam 2 mg tablet 2 mg PO DIRECTED 12/29/23 11/20/24 Unknown History mometasone 50 mcg/actuation nasal 1 spray intranasal DIRECTED 12/29/23 11/20/24 Unknown History spray topiramate 25 mg tablet 25 mg PO DAILY 01/09/24 11/20/24 Unknown History Allergies Allergy/AdvReac Type Severity Reaction Status Date / Time oxycodone AdvReac Itching Verified 11/20/24 08:29 Review of Systems 2 Review of Systems: All systems reviewed & are unremarkable except as noted in HPI and below Constitutional: Constitutional: Reports no additional constitutional complaints ENT: Reports system reviewed and no additional complaints, except as documented Cardiovascular: Cardiovascular: Reports no additional cardiovascular complaints, Denies chest pain and Denies dyspnea Respiratory: Respiratory: Reports no additional respiratory complaints, Denies chest congestion, Denies cough and Denies dyspnea Gastrointestinal: Gastrointestinal: Reports no additional gastrointestinal complaints Genitourinary: Genitourinary: Reports no additional female genitourinary complaints Musculoskeletal: Musculoskeletal: Reports as per HPI and Reports back pain (Right lower lumbar) Integumentary/Breasts: Skin/Breast: Reports system reviewed and no additional complaints, except as [facility]u [facility] Past Medical History Medical History 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 Closed fracture of left distal fibula Chondromalacia of right patellofemoral joint Lymphedema due to venous disease Fracture of distal end of left fibula Migraine Anxiety Surgical History Surgical History History of hysterectomy Family History Family History Unknown Heart disease Social History Social History Social History: caffeine use Smoking status: Never smoker Alcohol intake: never Occupation/Education: occupation 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 There is no relevant family history pertinent to the patient complaint. Exam 2 Const: General: cooperative, healthy appearing, comfortable, no acute distress, well developed, alert and well nourished Nutritional Appearance: w ell nourished Orientation/consciousness: patient oriented x3 Limitations: no limitations HENMT: Head: normal to inspection Face and sinus: normal facial exam and face symmetric Eyes: General: appearance normal, both eyes and all related structures Neck: Neck: normal visual inspection, full ROM, no lymphadenopathy and no meningeal signs Chest: Chest palpation & inspection: normal inspection of the chest Resp: Effort & Inspection: normal respiratory effort and able to speak in complete sentences Cardio: Rate: regular rate GI: GI Palp: No abdominal tenderness Back/Spine/Pelvis: Back: no CVA tenderness, No erythema, No warmth, No ecchymosis and back tenderness Cervical Spine: normal cervical lordosis, cervical ROM normal and No Cervical spine tenderness Thoracic/Lumbar Spine: p araspinal muscle tenderness on the right in the mid lumbar and in the lower lumbar, No thoracic spinal tenderness and No lumbar spinal tenderness Back/spine/pelvis image: 1. Tenderness to palpation, but pain with movement. No erythema, ecchymosis or rash noted. No swelling Skin: General skin exam: normal color and no rashes or lesions noted Neuro: General: patient oriented x3, moves all extremities and no meningeal signs Cognition (Neuro): normal cognition Speech: normal speech Extrem: General: normal to inspection, full ROM and capillary refill normal Psych: Appearance: grossly normal and well kempt Mental Status: mental status grossly normal Speech and movement: Normal speech and movement present and Clear speech present Affect: normal affect Attitude: cooperative Course Course Level of Care: Express Care Visit Vital Signs Vital signs: Vital Signs Temperature 97.1 F L 11/20/24 08:19 Pulse Rate 86 11/20/24 08:19 Respiratory Rate 16 11/20/24 08:19 Blood Pressure 136/98 H 11/20/24 08:19 Pulse Oximetry 100 11/20/24 08:19 Oxygen Delivery Room Air 11/20/24 08:19 Temperature 97.1 F L 11/20/24 08:19 Pulse Rate 86 11/20/24 08:19 Respiratory Rate 16 11/20/24 08:19 Blood Pressure 136/98 H 11/20/24 08:19 Pulse Oximetry 100 11/20/24 08:19 Oxygen Delivery Room Air 11/20/24 08:19 Reviewed MDM - Back Pain/Injury MDM Narrative Medical decision making narrative: Patient sitting in exam room. Appears uncomfortable. Reporting back pain for couple weeks, pain worsening over the last couple of days. Denies loss retention bowel bladder. Moving extremities well. No midline tenderness. Denies fevers denies urinary Exam consistent with lower back strain due to abnormal gait from fracture. Patient appropriate for outpatient treatment with muscle relaxer, anti- inflammatories with close follow-up with primary Discharge instructions reviewed with patient, as well as provided in writing per nursing staff. The instructions also include specific and strict return/GO TO THE ER as well as f/u information. All questions have been answered, and the patient deny any further questions with discharge and discharge plan. Some parts of this dictation were generated by voice recognition software and may contain typographical and/or grammatical inaccuracies. Differential Diagnosis Differential diagnosis: Likely lumbar radiculopathy, sciatica and strain of lumbar region Critical Care Time Critical Care Time Critical Care Time: No Discharge Plan Discharge Clinical Impression: Lumbar spine strain Qualifiers: Encounter type: initial encounter Qualified Code(s): S39.012A - Strain of muscle, fascia and tendon of lower back, initial encounter Patient Disposition: Home, Self-Care Condition: Stable Instructions: Low Back Strain (ED), Back Pain (ED), Lower Back Exercises (ED) Additional Instructions: Take ibuprofen as directed to decrease inflammation and to help pain. Take Baclofen (muscle relaxer) as directed. Do not drink, drive, operate machinery, or do anything dangerous while taking this medication Exercise:Combine aerobic exercise, like walking or swimming, with specific exercises to keep the muscles in your back and abdomen strong and flexible. Proper Lifting:Be sure to lift heavy items with your legs, not your back. Do not bend over to pick something up. Keep your back straight and bend at your knees. Weight:Maintain a healthy weight. Being overweight puts added stress on your lower back. Avoid Smoking:Both the smoke and the nicotine cause your spine to age faster than normal. Proper Posture:Good posture is important for avoiding future problems. A therapist can teach you how to safely stand, sit, and lift. Use warm moist heat to help with pain. Using topical such as Biofreeze, Bigg-Nevarez or Aspercreme can also help Follow up with Primary provider in 2-3 days, This may become a chronic condition and they will be the one to help manage your pain and order additional testing. Go to the nearest ER if you develop problems with bladder/bowel function, weakness or loss of feeling in one or both of your legs. Patient Language: Citizen Of [place] Prescriptions: New baclofen 10 mg tablet 10 mg PO TID PRN (Reason: muscle pain) Qty: 10 0RF No Action mometasone 50 mcg/actuation spray,non-aerosol 1 spray INTRANASAL DIRECTED alprazolam 2 mg tablet 2 mg PO DIRECTED albuterol sulfate 90 mcg/actuation HFA aerosol inhaler 2 puff INHALATION DIRECTED Excedrin Migraine 250-250-65 mg tablet 1 tablet PO Q4-6H PRN (Reason: pain) Qty: 10 0RF topiramate 25 mg tablet 25 mg PO DAILY tramadol 50 mg tablet 50 mg PO Q6H PRN (Reason: pain) Qty: 30 1RF Follow-up/Referrals: Tamear,Darius Hester MD [Primary Care Provider] - 1 Week ([facility] care follow up right lower back pain) Stand Alone Forms: Work/School Release IP Time of Disposition: 08:32
[2024-11-20 08:19] VITALS: BP 136/98; PULSE 86; RESP 16; TEMP 36.2; O2SAT 100
== END 2024-11-20 08:40 | disposition home or self-care (01) ==
PROVIDERS: Emergency Provider Nurse Practitioner; PCP Family Medicine
DX: S39.012A Strain of muscle, fascia and tendon of lower back, initial encounter (principal); X58.XXXA Exposure to other specified factors, initial encounter; F41.9 Anxiety disorder, unspecified
CPT/HCPCS: 99213; G0463